=== PATIENT | male | born 1995 | race Caucasian/White ===

== ENCOUNTER 2018-10-16 10:07 | Emergency (ER) | payer OTHER ==
[2018-10-16] MEDS: IBUPROFEN 800 MG TAB PO (10:59)
[2018-10-16] MEDS: DIPHTH/TET/ACEL PERTUSS (ADULT) 0.5 ML VIAL IM* (11:00)
== END 2018-10-16 12:08 | disposition home or self-care (01) ==
LOC: FTE 10:07
DX: S61.303A Unspecified open wound of left middle finger with damage to nail, initial encounter (principal); J45.909 Unspecified asthma, uncomplicated; W22.8XXA Striking against or struck by other objects, initial encounter; Y92.9 Unspecified place or not applicable; Z23 Encounter for immunization
CPT/HCPCS: 29130; 73140; 90471; 90715; 99283-25

== ENCOUNTER 2019-03-05 18:49 | Emergency (ER) | payer OTHER ==
[2019-03-05] MEDS: ALPRAZOLAM 0.25 MG TAB PO (21:22)
== END 2019-03-05 21:44 | disposition home or self-care (01) ==
LOC: FTE 18:49
DX: F41.9 Anxiety disorder, unspecified (principal)
CPT/HCPCS: 99281; Z7610

== ENCOUNTER 2019-06-28 13:18 | Emergency (ER) | payer OTHER | END 2019-06-28 14:27 | disposition home or self-care (01) | LOC: E/R 13:18 | DX: F41.9 Anxiety disorder, unspecified (principal) | CPT/HCPCS: 99283; Z7502 ==